=== PATIENT | male | born 2000 | race Caucasian/White ===

== ENCOUNTER 2020-04-17 00:52 | Emergency (ER) | payer BC ==
[~2020-04-17] VITALS: Ht 182.9 cm; Wt 159.1 kg
[2020-04-17 01:00] VITALS: TEMP 97.6
[2020-04-17] MEDS ORDERED: CEPHALEXIN500 M1 PO (02:11)
[2020-04-17 02:35] VITALS: BP 140/80; PULSE 90
== END 2020-04-17 02:35 | disposition home or self-care (01) ==
LOC: COL.ER 00:52
DX: S61.412A Laceration without foreign body of left hand, initial encounter (principal); F17.220 Nicotine dependence, chewing tobacco, uncomplicated; W01.110A Fall on same level from slipping, tripping and stumbling with subsequent striking against sharp glass, initial encounter; Y92.009 Unspecified place in unspecified non-institutional (private) residence as the place of occurrence of the external cause